=== PATIENT | female | born 1945 ===

== ENCOUNTER → 2016-03-23 | Outpatient (CLI) | payer MEDICARE ==
--- NOTE | 2016-03-24 09:31 | MM ---
Reason for exam: screening (asymptomatic). Last mammogram was performed 1 year and 1 month ago. History: Patient is postmenopausal. Family history of breast cancer in grandmother at age 70. Benign cyst aspiration of the right breast, 1979. Benign cyst aspiration of the right breast, 1969. Took estrogen for 3 years beginning at age 53. Took progesterone for 3 years beginning at age 53. Physical Findings: A clinical breast exam by your physician is recommended on an annual basis and results should be correlated with mammographic findings. MG 3D Screening Mammo W/Cad Bilateral CC and MLO view(s) were taken. Prior study comparison: March 02, 2015, bilateral MG screening mammo w CAD. February 10, 2014, bilateral MG screening mammo w CAD. There are scattered fibroglandular densities. Finding: There are typically benign calcifications in both breasts. There is a chronic nodularity right breast. No significant changes in finding since March 02, 2015 and February 10, 2014. ASSESSMENT: Benign, BI-RAD 2 RECOMMENDATION: Routine screening mammogram of both breasts in 1 year.
== END | disposition home or self-care (01) ==
LOC: RADMAMWWP 10:12
PROVIDERS: ATTEND Internal Medicine
DX: Z12.31 Encounter for screening mammogram for malignant neoplasm of breast (principal)
CPT/HCPCS: 77063; G0202

== ENCOUNTER → 2017-05-30 | Outpatient (CLI) | payer MEDICARE ==
--- NOTE | 2017-05-30 09:56 | CT ---
EXAMINATION TYPE: CT sinus wo con DATE OF EXAM: 05/30/2017 COMPARISON: NONE HISTORY: Chronic sinusits CT DLP: 545.1 mGycm. Automated Exposure Control for Dose Reduction was Utilized. TECHNIQUE: CT scan of the sinuses is performed without contrast, axial images are obtained, coronal r eformatted images are also reviewed. FINDINGS: There is complete opacification of the right maxillary sinus with occlusion of the ostiomea blane complex. There is near complete opacification of the right-sided ethmoid air cells and the centra l and right aspect of the frontal sinus. No air-fluid levels. The left maxillary sinus is patent as is the ostiomeatal complex. No significant mucosal thickening i nvolving the left ethmoid air cells. Sphenoid sinus has a normal appearance. Frontal sinus on the lef t has a normal appearance. Visualized portion of mastoid air cells show no abnormal opacification. The globes are intact bilate rally. IMPRESSION: 1. Severe right-sided ethmoidal, frontal and maxillary sinusitis which appears chronic.
== END | disposition home or self-care (01) ==
LOC: RADCTMAIN 08:57
PROVIDERS: ATTEND Otolaryngology
DX: J32.0 Chronic maxillary sinusitis (principal); J32.2 Chronic ethmoidal sinusitis; J32.1 Chronic frontal sinusitis
CPT/HCPCS: 70486

== ENCOUNTER → 2017-06-08 | Outpatient (CLI) | payer MEDICARE ==
[2017-06-08 08:31] LABS: Basophils # (A) 0.1 k/uL (0-0.2); Basophils % (A) 1 %; Eosinophils # (A) 0.3 k/uL (0-0.7); Eosinophils % (A) 5 %; HCT 40.4 % (34.0-46.0); Lymphocytes # (A) 2.4 k/uL (1.0-4.8); Lymphocytes % (A) 39 %; MCH 31.4 pg (25.0-35.0); MCHC 34.8 g/dL (31.0-37.0); MCV 90.4 fL (80.0-100.0); Mean Platelet Volume 6.6; Monocytes # (A) 0.5 k/uL (0-1.0); Monocytes % (A) 9 %; Neutrophils # (A) 2.7 k/uL (1.3-7.7); Neutrophils % (A) 44 %; Platelet Count 329 k/uL (150-450); RBC 4.47 m/uL (3.80-5.40); RDW 13.1 % (11.5-15.5); WBC 6.1 k/uL (3.8-10.6)
[2017-06-08 08:45] LABS: Calcium 9.8 mg/dL (8.4-10.2); Potassium 3.9 mmol/L (3.5-5.1); Total Bilirubin 0.4 mg/dL (0.2-1.3)
== END | disposition home or self-care (01) ==
LOC: LABWHC1 07:54
PROVIDERS: ATTEND Otolaryngology
DX: Z01.818 Encounter for other preprocedural examination (principal); I10 Essential (primary) hypertension; R00.1 Bradycardia, unspecified
CPT/HCPCS: 36415; 80053; 80061; 84443; 85025; 93005

== ENCOUNTER → 2018-04-24 | Outpatient (CLI) | payer MEDICARE ==
--- NOTE | 2018-04-24 14:17 | US ---
EXAMINATION TYPE: US transvaginal DATE OF EXAM: 04/24/2018 COMPARISON: NONE CLINICAL HISTORY: N83.9 Ovarian Mass. patient states having a CT not at [facility] that showed right ova ana lesion TECHNIQUE: Transvaginal (TV). Date of LMP: PHYSIOTHERAPY ASSISTANT EXAM MEASUREMENTS: Uterus: 5.3 x 3.3 x 3.0 cm Endometrial Stripe: 0.4 cm Right Ovary: 1.7 x 1.2 x 1.1 cm 1. Uterus: Anteverted Appears small and heterogenous. Tiny cystic appearing lesion seen in anteri or mid uterus= 0.2 x 0.4 x 0.3 cm 2. Endometrium: Heterogenous 3. Right Ovary: cystic appearing lesion - 1.7 x 1.8 x 1.6 cm 4. Left Ovary: Obscured by overlying bowel gas 5. Bilateral Adnexa: wnl 6. Posterior cul-de-sac: no free fluid Cervix- nabothian cyst IMPRESSION: 1. Uterus appears heterogeneous which is a nonspecific finding. There is a small myometrial cyst mary uring 4 mm. 2. Endometrium measures only 4 mm but is somewhat heterogeneous correlate clinically. 3. There is a 1. Centimeter right ovarian cyst which has a simple appearance. No prior exams are avai lable for comparison. This somewhat atypical given the patient's demographics correlate clinically.
== END | disposition home or self-care (01) ==
LOC: RADUSWWP 13:26
PROVIDERS: ATTEND Family Medicine
DX: N83.201 Unspecified ovarian cyst, right side (principal); N85.8 Other specified noninflammatory disorders of uterus
CPT/HCPCS: 76830

== ENCOUNTER → 2018-07-25 | Outpatient (CLI) | payer MEDICARE ==
--- NOTE | 2018-07-25 13:15 | US ---
EXAMINATION TYPE: US transvaginal DATE OF EXAM: 07/25/2018 COMPARISON: 04/24/2018 CLINICAL HISTORY: N83.201 Unspecified ovarian cyst, right side. TECHNIQUE: Transvaginal (TV) . Date of LMP: 20+ years ago EXAM MEASUREMENTS: Uterus: 5.5 x 3.2 x 3.6 cm Endometrial Stripe: 1.0 cm Right Ovary: not visualized Left Ovary: not visualized 1. Uterus: heterogenous, possible fibroids 2. Endometrium: thickened 3. Right Ovary: not visualized 4. Left Ovary: not visualized 5. Bilateral Adnexa: wnl 6. Posterior cul-de-sac: no free fluid Bilateral ovaries not seen due to atrophy and bowel. IMPRESSION: 1. Normal pelvic ultrasound
== END | disposition home or self-care (01) ==
LOC: RADUSWWP 10:56
PROVIDERS: ATTEND Family Medicine
DX: N83.201 Unspecified ovarian cyst, right side (principal)
CPT/HCPCS: 76830

== ENCOUNTER → 2018-10-08 | Outpatient (CLI) | payer MEDICARE ==
--- NOTE | 2018-10-08 14:30 | US ---
EXAMINATION TYPE: US transvaginal DATE OF EXAM: 10/08/2018 COMPARISON: 07/25/2018 CLINICAL HISTORY: Endometrial thickening R93.89. No pain. TECHNIQUE: Transvaginal (TV). Date of LMP: MANAGER FIELD EXAM MEASUREMENTS: Uterus: 5.6 x 3.3 x 3.0 cm Endometrial Stripe: 0.9 cm Right Ovary: 2.0 x 0.9 x 0.9 cm 1. Uterus: Anteverted Appears small and heterogenous. Midline cystic appearing lesion seen = 0.2 x 0.3 x 0.2 cm 2. Endometrium: Thickened for a postmenopausal female. Suboptimal visualization of endometrial borde rs. 3. Right Ovary: cystic appearing lesion seen - 1.3 x 1.5 x 1.4 cm. This measures smaller than the ex am of 04/24/2018. This previously measured 1.7 x 1.8 x 1.6 cm. 4. Left Ovary: Obscured by overlying bowel gas 5. Bilateral Adnexa: wnl 6. Posterior cul-de-sac: no free fluid Cervix- nabothian cyst IMPRESSION: 1. Persistent endometrial thickening of the endometrium measuring 9 mm and previously measuring 10 mm . Direct visualization and percutaneous biopsy could be considered, particularly if there is any post possible bleeding. 2. Right ovarian cyst measures 1.5 cm and appears simple. This measures smaller than on the prior exa m of 04/24/2018 and is likely benign. 3. Obscuration of the left ovary by overlying bowel gas.
== END | disposition home or self-care (01) ==
LOC: RADUSWWP 12:07
PROVIDERS: ATTEND Obstetrics & Gynecology
DX: N83.201 Unspecified ovarian cyst, right side (principal)
CPT/HCPCS: 76830

== ENCOUNTER → 2018-10-14 | Outpatient (CLI) | payer MEDICARE ==
[2018-10-14 09:06] LABS: Basophils # (A) 0.1 k/uL (0-0.2); Basophils % (A) 1 %; Eosinophils # (A) 0.3 k/uL (0-0.7); Eosinophils % (A) 5 %; HCT 40.4 % (34.0-46.0); HGB 13.5 gm/dL (11.4-16.0); Lymphocytes # (A) 2.5 k/uL (1.0-4.8); Lymphocytes % (A) 36 %; MCH 30.9 pg (25.0-35.0); MCHC 33.3 g/dL (31.0-37.0); MCV 92.8 fL (80.0-100.0); Mean Platelet Volume 6.4; Monocytes # (A) 0.5 k/uL (0-1.0); Monocytes % (A) 7 %; Neutrophils # (A) 3.4 k/uL (1.3-7.7); Neutrophils % (A) 49 %; Platelet Count 325 k/uL (150-450); RBC 4.35 m/uL (3.80-5.40); RDW 13.5 % (11.5-15.5); WBC 6.9 k/uL (3.8-10.6)
[2018-10-14 16:44] LABS: African American GFR (CKD) 85.4 (60.0-200.0); Albumin/Globulin Ratio 1.9 (1.60-3.17); Anion Gap 7.9 mmol/L (4.00-12.00); BUN/Creat Ratio 26.25 Ratio (12.00-20.00); Calcium 8.9 mg/dL (8.7-10.3); Carbon Dioxide 26.1 mmol/L (21.6-31.8); Chol/HDL Ratio 3.8; Globulin 2.1 g/dL (1.6-3.3); LDL Cholesterol,Calculated 121.2 mg/dL (0.0-131.0); Non-African American GFR(CKD) 73.7 (60.0-200.0); Potassium 4.2 mmol/L (3.5-5.5); Total Bilirubin 0.3 mg/dL (0.3-1.2); Total Protein 6.1 g/dL (6.2-8.2); VLDL Calculation 21.8 mg/dL (5.00-40.00)
[2018-10-14 19:32] LABS: Hemoglobin A1C 5.9 % (4.0-6.0)
== END | disposition home or self-care (01) ==
LOC: LABWHC1 08:38
PROVIDERS: ATTEND Family Medicine
DX: E78.5 Hyperlipidemia, unspecified (principal); I10 Essential (primary) hypertension; R73.01 Impaired fasting glucose
CPT/HCPCS: 36415; 80053; 80061; 83036; 85025

== ENCOUNTER → 2018-10-14 | Outpatient (CLI) | payer MEDICARE | END | disposition home or self-care (01) | LOC: LABPAT 08:36 | PROVIDERS: ATTEND Obstetrics & Gynecology | DX: Z01.818 Encounter for other preprocedural examination (principal); Z01.812 Encounter for preprocedural laboratory examination | CPT/HCPCS: 93005 ==

== ENCOUNTER 2018-11-04 06:27 | Day surgery (SDC) | payer MEDICARE ==
[2018-10-25 15:54] VITALS: BMI 41.3
--- NOTE | 2018-11-03 17:41 | P.HPOB ---
History of Present Illness H&P Date: 11/03/18 Chief Complaint: Endometrial thickening This is a 74 y.o. female, 2, para 2, who presents for dilatation and curettage with hysteroscopy due to thickened endometrium on ultrasound. She initially had a CT scan performed for a lesion in her umbilicus and an incidental finding of a 1.5 cm. right ovarian cyst was made. Initial TV pelvic US showed endometrium thickness of 0.4 cm with a tiny cystic area within the anterior mid uterus. R. ovary still showed cyst. A second pelvic US showed lining thickness or 1 cm and possible fibroid changes. A recent ultrasound showed uterus measuring 5.6 x 3.3 x 3 cm with endometrial thickness of 0.9 cm. Right ovarian cyst is down to 1.5 cm now. There is still appears to be a midline cystic appearing lesion within the uterus measuring 0.2 x 0.3 x 0.2 cm. She is denied any vaginal bleeding or pelvic pain. In light of these findings she has consented to a dilation and curettage with hysteroscopy to further evaluate. Obstetrical history: . History of 2 vaginal deliveries. Gynecologic history: No history of sexual transmitted diseases. Menopause was at age 53-53. Social history: She is . She is a homemaker. Review of Systems Constitutional: Reports fatigue, Reports night sweats, Reports weight gain, Denies chills, Denies fever Eyes: denies blurred vision, denies pain Ears: bilateral: decreased hearing Ears, nose, mouth and throat: Denies headache, Denies sore throat Cardiovascular: Denies chest pain, Denies shortness of breath Respiratory: Denies cough Gastrointestinal: Reports heartburn, Denies abdominal pain Genitourinary: Reports stress incontinence Menstruation: Reports postmenopausal Musculoskeletal: Reports low back pain, Reports myalgias, Reports neck pain Integumentary: Denies pruritus, Denies rash Neurological: Denies numbness, Denies weakness Psychiatric: Reports anxiety, Reports insomnia, Reports memory loss, Denies depression Hematologic/Lymphatic: Reports easy bruising Past Medical History Past Medical History: GERD/Reflux, Hearing Disorder / Deafness, Hyperlipidemia, Hypertension Additional Past Medical History / Comment(s): Hx shingles. Hard of hearing. History of Any Multi-Drug Resistant Organisms: None Reported Past Surgical History: Cholecystectomy, Tonsillectomy, Tubal Ligation Additional Past Surgical History / Comment(s): Sinus surgery. D&C Past Anesthesia/Blood Transfusion Reactions: No Reported Reaction Additional Past Anesthesia/Blood Transfusion Reaction / Comment(s): No hx of blood transfusion. Past Psychological History: No Psychological Hx Reported Smoking Status: Former smoker Past Alcohol Use History: None Reported Additional Past Alcohol Use History / Comment(s): Quit smoking in 2006, smoked for 30 yrs, 1PPD. Past Drug Use History: None Reported - Past Family History Mother Additional Family Medical History / Comment(s): heart problems Father Additional Family Medical History / Comment(s): heart problems Medications and Allergies Home Medications Medication Instructions Recorded Confirmed Type Aspirin 81 mg PO DAILY 07/13/15 10/25/18 History Atenolol [Tenormin] 50 mg PO HS 07/13/15 10/25/18 History Ca/D3/Mag/Zinc/Zacarias/Siva/Mgbor 1 each PO DAILY 07/13/15 10/25/18 History [Caltrate 600+D3+Min Chew Tab] Hydrochlorothiazide [Hydrodiuril] 25 mg PO DAILY 07/13/15 10/25/18 History Vit C/E/Zn/Coppr/Lutein/Zeaxan 1 each PO DAILY 07/13/15 10/25/18 History [Preservision Areds 2 Softgel] Ezetimibe 10 mg PO HS 10/25/18 10/25/18 History Magnesium Oxide [Rdz] 500 mg PO DAILY 10/25/18 10/25/18 History Omeprazole [PriLOSEC] 20 mg PO QAM 10/25/18 10/25/18 History Allergies Allergy/AdvReac Type Severity Reaction Status Date / Time morphine Allergy Itching Verified 10/25/18 15:40 atorvastatin AdvReac Abdominal Verified 11/03/18 17:40 Pain Exam Osteopathic Statement: *. No significant issues noted on an osteopathic structural exam other than those noted in the History and Physical/Consult. HEENT: Within normal limits Heart: Regular rate and rhythm Lungs: Clear to auscultation bilaterally Abdomen: Soft, nontender Pelvic exam: Uterus is anteverted, nontender, with no adnexal masses or tenderness palpated Extremities: Negative Homans Assessment and Plan (1) Endometrial thickening on ultrasound Status: Acute Code(s): R93.89 - ABNORMAL FINDINGS ON DX IMAGING OF OTH BODY STRUCTURES SNOMED Code(s): 602437327 Plan: Proceed with dilation and curettage with hysteroscopy. I have discussed the risks, benefits, and alternative therapies for the above- mentioned procedure and for both sedation/anesthesia as well as necessary blood products administration, if indicated, as they pertain to this patient. The patient has indicated her understanding and acceptance of the risks and procedures discussed.
[~2018-11-04 06:27] MED LIST: DEXAMETHASONE SOD PHOSPHATE 10 MG/ML 1 ML VIAL IV ONE; LACTATED RINGERS 1,000 ML IV SCH; MIDAZOLAM 2 MG/2 ML VIAL IV PRN; ONDANSETRON 4 MG/2 ML VIAL IVP ONE; Pre Op ABX Message 1 EACH MISC MISCELLANE ONE; fentaNYL (PF) 50 MCG/ML 2 ML AMP IV PRN
[2018-11-04] MEDS ORDERED: SUCCINYLCHOLINE CHLORIDE 100 MG/5 ML SYR IV ONE (07:29)
[2018-11-04] MEDS ORDERED: fentaNYL (PF) 50 MCG/ML 2 ML AMP ONE (07:29)
[2018-11-04] MEDS ORDERED: LIDOCAINE 1% INJ 10MG/ML (20 ML MDV) ONE (07:29)
--- NOTE | 2018-11-04 07:55 | P.OP ---
Date of Procedure: 11/04/18 Preoperative Diagnosis: Endometrial thickening on ultrasound Postoperative Diagnosis: Same Procedure(s) Performed: Dilation and curettage with hysteroscopy Anesthesia: REBECCA Surgeon: Adrianna Christopher Estimated Blood Loss (ml): 1 Pathology: other (Endometrial curettings) Condition: stable Disposition: same day Indications for Procedure: This is a 74 y.o. female, 2, para 2, who presents for dilatation and curettage with hysteroscopy due to thickened endometrium on ultrasound. She initially had a CT scan performed for a lesion in her umbilicus and an incidental finding of a 1.5 cm. right ovarian cyst was made. Initial TV pelvic US showed endometrium thickness of 0.4 cm with a tiny cystic area within the anterior mid uterus. R. ovary still showed cyst. A second pelvic US showed lining thickness or 1 cm and possible fibroid changes. A recent ultrasound showed uterus measuring 5.6 x 3.3 x 3 cm with endometrial thickness of 0.9 cm. Right ovarian cyst is down to 1.5 cm now. There is still appears to be a midline cystic appearing lesion within the uterus measuring 0.2 x 0.3 x 0.2 cm. She is denied any vaginal bleeding or pelvic pain. In light of these findings she has consented to a dilation and curettage with hysteroscopy to further evaluate. Operative Findings: Very atrophic endometrium is noted. Uterus is sounded to 6-1/2 cm. Upon hysteroscopy, both tubal ostia are visualized. There is noted to be either a submucosal fibroid or a small polyp anteriorly along the right border of the uterus. It is very small. Otherwise background endometrium appears very atrophic. Minimal endometrial curettings are obtained. Description of Procedure: The patient is taken to the operating room where she is placed in the dorsal lithotomy position. She is prepped and draped in the normal sterile fashion. Bladder is drained with a catheter. Examination is performed under anesthesia. Uterus is found to be small, anteverted, with no adnexal masses palpated. A weighted speculum was placed in the patient's vagina. A right angle retractor is used to visualize the cervix. Anterior lip of the cervix is grasped with a single-tooth tenaculum. Cervical os is noted to be slightly stenotic. The cervix is gently dilated with a Kamara dilator and then the uterus is sounded to 6-1/2 cm. Cervix is gently dilated further until a hysteroscope could be passed. Hysteroscopy is performed using normal saline. The above-noted findings were made and pictures are taken. Next the hysteroscope was removed on. The cervix is gently dilated further and then a medium-size sharp curet was introduced. Sharp curettage was performed until a gritty texture was noted. Irregular contour was noted along the anterior border. Very scant endometrial tissue is obtained. Single-tooth tenaculum was removed from the cervix. No bleeding is noted. All instruments are removed from the vagina. All sponge and needle counts are correct. Patient is then taken to the recovery room in stable condition.
[2018-11-04 08:04] VITALS: TEMP 97.5
[2018-11-04 08:46] VITALS: RESP 18
[2018-11-04 09:43] VITALS: BP 123/67; PULSE 60
== END 2018-11-04 09:45 | disposition home or self-care (01) ==
LOC: OR 06:27
PROVIDERS: ATTEND Obstetrics & Gynecology
DX: N84.0 Polyp of corpus uteri (principal); N83.201 Unspecified ovarian cyst, right side; N83.202 Unspecified ovarian cyst, left side; Z90.49 Acquired absence of other specified parts of digestive tract; Z98.51 Tubal ligation status; Z87.891 Personal history of nicotine dependence; Z79.82 Long term (current) use of aspirin; Z79.899 Other long term (current) drug therapy; Z88.5 Allergy status to narcotic agent; Z88.8 Allergy status to other drugs, medicaments and biological substances; I10 Essential (primary) hypertension; E78.5 Hyperlipidemia, unspecified
CPT/HCPCS: 88305; 58558; J1100; J2405; J2001; J3010; J0330

== ENCOUNTER → 2019-05-02 | Outpatient (CLI) | payer MEDICARE ==
[2019-05-02 12:40] LABS: HCT 41.4 % (34.0-46.0); HGB 13.8 gm/dL (11.4-16.0); MCH 31.8 pg (25.0-35.0); MCHC 33.3 g/dL (31.0-37.0); MCV 95.4 fL (80.0-100.0); Platelet Count 358 k/uL (150-450); RBC 4.34 m/uL (3.80-5.40); WBC 7.8 k/uL (3.8-10.6)
[2019-05-02 12:48] LABS: Albumin 4.3 g/dL (3.5-5.0); Calcium 9.6 mg/dL (8.4-10.2); Potassium 4.5 mmol/L (3.5-5.1); Total Bilirubin 0.4 mg/dL (0.2-1.3); Total Protein 7.4 g/dL (6.3-8.2)
[2019-05-02 13:07] LABS: Amorphous Sediment,Urine Few /hpf; Appearance,Urine Cloudy (Clear); Bacteria,Urine Rare /hpf; Bilirubin,Urine Negative (Negative); Blood,Urine Negative (Negative); Color,Urine Yellow; Glucose,Urine (UA) Negative (Negative); Hyaline Casts,Urine 2 /lpf (0-2); Ketones,Urine 1+ (Negative); Leukocyte Esterase,Urine Moderate (Negative); Mucus,Urine Many /hpf; Nitrite,Urine Negative (Negative); Protein,Urine 1+ (Negative); RBC,Urine 4 /hpf (0-5); Specific Gravity,Urine 1.034 (1.001-1.035); Squamous Epithelial Cell,Urine 10 /hpf (0-4); WBC,Urine 3 /hpf (0-5)
== END | disposition home or self-care (01) ==
LOC: LABPAT 10:23
PROVIDERS: ATTEND Orthopaedic Surgery Sports Medicine
DX: Z01.818 Encounter for other preprocedural examination (principal); Z01.812 Encounter for preprocedural laboratory examination; M17.11 Unilateral primary osteoarthritis, right knee
CPT/HCPCS: 36415; 80053; 81001; 85027; 85610; 85730; 87070

== ENCOUNTER → 2022-07-18 | Outpatient (CLI) | payer MEDICARE ==
--- NOTE | 2022-07-18 12:48 | US ---
EXAMINATION TYPE: US venous doppler duplex LE RT DATE OF EXAM: 07/18/2022 12:38 PM COMPARISON: NONE CLINICAL INDICATION: Female, 77 years old with history of R60.0 LOCALIZED EDEMA; SIDE PERFORMED: Right TECHNIQUE: The lower extremity deep venous system is examined utilizing real time linear array sonog hernesto with graded compression, doppler sonography and color-flow sonography. VESSELS IMAGED: Common Femoral Vein Deep Femoral Vein Greater Saphenous Vein * Femoral Vein Popliteal Vein Small Saphenous Vein * Proximal Calf Veins (* superficial vessels) Right Leg: Negative for DVT IMPRESSION: No evidence for DVT within the right lower extremity imaged from the groin to the upper calf.
== END | disposition home or self-care (01) ==
LOC: RADUSWWP 11:59
PROVIDERS: ATTEND Family Medicine
DX: R60.0 Localized edema (principal)

== ENCOUNTER → 2022-08-09 | Outpatient (CLI) | payer MEDICARE ==
--- NOTE | 2022-08-09 18:33 | CA ---
Transthoracic Echo Report Name: Rohini Kelly Age: 77 Gender: F : 1945 Exam Date: 08/09/2022 12:59 Exam Location: [facility] Ht (in): 62 Wt (lb): 240 Ordering Physician: Eitan Caputo MD Attending/Referring Phys: Rosalia Sierra [facility] Guide Travel Sharon Ga RDCS Procedure CPT: Indications: I10 HYPERTENSION Cardiac Hx: Technical Quality: Good Contrast 1: Total Dose (mL): Contrast 2: Total Dose (mL): MEASUREMENTS (Male / Female) Normal Values 2D ECHO LV Diastolic Diameter PLAX 5.4 cm 4.2 - 5.9 / 3.9 - 5.3 cm LV Systolic Diameter PLAX 3.1 cm IVS Diastolic Thickness 1.3 cm 0.6 - 1.0 / 0.6 - 0.9 cm LVPW Diastolic Thickness 1.1 cm 0.6 - 1.0 / 0.6 - 0.9 cm LV Relative Wall Thickness 0.4 RV Internal Dim ED PLAX 3.0 cm LA Systolic Diameter LX 3.9 cm 3.0 - 4.0 / 2.7 - 3.8 cm LV Diastolic Volume MOD 4C 115.0 cm??? LV Systolic Volume MOD 4C 50.2 cm??? LV Ejection Fraction MOD 4C 56.4 % LV Diastolic Length 4C 7.8 cm LV Systolic Length 4C 6.0 cm LV Diastolic Volume MOD 2C 60.0 cm??? LV Systolic Volume MOD 2C 20.0 cm??? LV Ejection Fraction MOD 2C 66.6 % LV Diastolic Length 2C 7.5 cm LV Systolic Length 2C 6.3 cm LA Volume 40.6 cm??? 18 - 58 / 22 - 52 cm??? M-MODE Aortic Root Diameter MM 2.9 cm MV E Point Septal Separation 0.5 cm AV Cusp Separation MM 1.9 cm DOPPLER AV Peak Velocity 158.2 cm/s AV Peak Gradient 10.0 mmHg MV Area PHT 3.2 cm??? Mitral E Point Velocity 90.2 cm/s Mitral A Point Velocity 113.9 cm/s Mitral E to A Ratio 0.8 MV Deceleration Time 237.6 ms MV E' Velocity 7.2 cm/s Mitral E to MV E' Ratio 12.5 TR Peak Velocity 274.8 cm/s TR Peak Gradient 30.2 mmHg Right Ventricular Systolic Press 35.2 mmHg FINDINGS Left Ventricle Left ventricular ejection fraction is estimated at 55-60 %. Normal left ventricular wall motion. Left ventricular cavity size normal. Mildly increased left ventricular wall thickness. Right Ventricle Normal right ventricular size and function. Mild pulmonary hypertension. Right Atrium Normal right atrial size. Left Atrium Normal left atrial size. Mitral Valve Structurally normal mitral valve. Mild mitral regurgitation. Aortic Valve Trileaflet aortic valve. No aortic valve stenosis or regurgitation.aortic valve sclerosis. Tricuspid Valve Structurally normal tricuspid valve. Mild tricuspid regurgitation. Pulmonic Valve Structurally normal pulmonic valve. No pulmonic regurgitation. Pericardium Normal pericardium. No pericardial effusion. Aorta Normal size aortic root and proximal ascending aorta. CONCLUSIONS 1. Normal left ventricle size and systolic function 2. Mild mitral and tricuspid regurgitation Previewed by: Dr. Anisha Robbins MD (Electronically Signed) Final Date: 09 August 2022 18:33
== END | disposition home or self-care (01) ==
LOC: RADECHMAIN 12:50
PROVIDERS: ATTEND Family Medicine
DX: I08.1 Rheumatic disorders of both mitral and tricuspid valves (principal); I10 Essential (primary) hypertension
CPT/HCPCS: 93306

== ENCOUNTER 2023-07-31 13:04 | Emergency (ER) | payer MEDICARE ==
[2023-07-31 13:09] VITALS: TEMP 97.9
--- NOTE | 2023-07-31 13:58 | ED ---
Abdominal Pain HPI - General Source: patient, RN notes reviewed Mode of arrival: ambulatory Limitations: no limitations <Demi Pierre - Last Filed: 08/07/23 11:14> <Isaias Faulkner - Last Filed: 08/14/23 07:46> - General Chief Complaint: Abdominal Pain Stated Complaint: Abd pain, nausea Time Seen by Provider: 07/31/23 13:20 - History of Present Illness Initial Comments: Shama kumari is a 78-year-old female presents emergency department chief complaint of right lower quadrant abdominal pain that started at 5 AM this morning. States that the pain has began to migrate into her back. She endorses nausea and decrease in appetite, no vomiting. Denies hematuria, dysuria, increase in frequency, urgency, denies history of nephrolithiasis. States that she has had 3 bowel movements today with no signs of blood or dark or tarry stools. Past surgical history of gallbladder removal roughly 8 years ago with no complications. (Demi Pierre) - Related Data Home Medications Medication Instructions Recorded Confirmed Vit C/E/Zn/Coppr/Lutein/Zeaxan 1 cap PO BID 07/13/15 07/31/23 [Preservision Areds 2 Softgel] atenoloL [Tenormin] 50 mg PO HS 07/13/15 07/31/23 hydroCHLOROthiazide [Hydrodiuril] 25 mg PO DAILY 07/13/15 07/31/23 Ezetimibe 10 mg PO HS 10/25/18 07/31/23 Omeprazole [PriLOSEC] 20 mg PO DAILY 10/25/18 07/31/23 Calcium Carbonate/Vitamin D3 1 tab PO DAILY 07/31/23 07/31/23 [Calcium 600 mg-D3 10 Mcg (400 Iu)] Fenofibrate [Lofibra] 54 mg PO HS 07/31/23 07/31/23 Ibuprofen [Motrin] 800 mg PO Q8H PRN 07/31/23 07/31/23 Niacin 500 mg PO DAILY 07/31/23 07/31/23 Solifenacin Succinate 10 mg PO DAILY 07/31/23 07/31/23 Allergies Allergy/AdvReac Type Severity Reaction Status Date / Time morphine Allergy Itching Verified 07/31/23 17:41 atorvastatin AdvReac Abdominal Verified 07/31/23 17:41 Pain, Muscle pain Review of Systems ROS Other: All systems not noted in ROS Statement are negative. <Demi Pierre - Last Filed: 08/07/23 11:14> ROS Other: All systems not noted in ROS Statement are negative. <Isaias Faulkner - Last Filed: 08/14/23 07:46> ROS Statement: Those systems with pertinent positive or pertinent negative responses have been documented in the HPI. Past Medical History Past Medical History: GERD/Reflux, Hypertension, Skin Disorder Additional Past Medical History / Comment(s): healing shingles back,rt breast,and around mouth-all areas are dry History of Any Multi-Drug Resistant Organisms: None Reported Past Surgical History: Cholecystectomy, Tonsillectomy, Tubal Ligation Past Anesthesia/Blood Transfusion Reactions: No Reported Reaction Additional Past Anesthesia/Blood Transfusion Reaction / Comment(s): no hx of blood transfusion Past Alcohol Use History: None Reported Past Drug Use History: None Reported - Past Family History Mother Additional Family Medical History / Comment(s): heart problems Father Additional Family Medical History / Comment(s): heart problems <Demi Pierre - Last Filed: 08/07/23 11:14> General Exam Limitations: no limitations <Demi Pierre - Last Filed: 08/07/23 11:14> Limitations: no limitations General appearance: alert, in no apparent distress Head exam: Present: atraumatic, normocephalic Eye exam: Present: normal appearance. Absent: scleral icterus, conjunctival injection ENT exam: Present: normal oropharynx Neck exam: Present: normal inspection Respiratory exam: Present: normal lung sounds bilaterally. Absent: respiratory distress, wheezes, rales, rhonchi, stridor, accessory muscle use Cardiovascular Exam: Present: regular rate, normal rhythm, normal heart sounds. Absent: systolic murmur, diastolic murmur, rubs, gallop GI/Abdominal exam: Present: soft, tenderness. Absent: distended, guarding, rebound, rigid, mass, pulsatile mass, hernia Extremities exam: Present: normal inspection, normal capillary refill. Absent: pedal edema, calf tenderness Back exam: Present: normal inspection. Absent: CVA tenderness (R), CVA tenderness (L) Neurological exam: Present: alert Skin exam: Present: warm, dry, intact, normal color. Absent: rash <Isaias Faulkner - Last Filed: 08/14/23 07:46> - General Exam Comments Initial Comments: Visual Physical Exam Vital signs reviewed General: Well-appearing, nontoxic, no acute distress. Head: Normocephalic, atraumatic Eyes: PERRLA, EOMI ENT: Airway patent Chest: Nonlabored breathing Skin: No visual rash, normal skin tone Neuro: Alert and oriented 3 Musculoskeletal: No gross abnormalities (Demi Pierre) Course Vital Signs 07/31/23 07/31/23 07/31/23 13:06 15:36 17:42 Temperature 97.9 F Pulse Rate 58 L 65 60 Respiratory 16 18 16 Rate Blood Pressure 160/74 132/79 128/47 O2 Sat by Pulse 95 98 96 Oximetry 07/31/23 07/31/23 22:43 23:17 Temperature Pulse Rate 74 62 Respiratory 18 18 Rate Blood Pressure 124/54 130/66 O2 Sat by Pulse 98 95 Oximetry Medical Decision Making - Lab Data Result diagrams: 07/31/23 15:29 07/31/23 16:26 <Demi Pierre - Last Filed: 08/07/23 11:14> - Lab Data Result diagrams: 07/31/23 15:29 07/31/23 16:26 <Isaias Faulkner - Last Filed: 08/14/23 07:46> - Medical Decision Making I completed the quick note portion of this chart signed Demi Pierre PA-C (Demi Pierre) Patient is 78-year-old woman with right lower quadrant pain since she has marked tenderness on the exam. The patient went for CT scan of the abdomen that did show probable appendicitis. The patient stated that she did not want to have surgery here and requested transfer to initially [facility] which did not have bed availability and then subsequently to [facility] which accepted patient for transfer. Was pt. sent in by a medical professional or institution (BRIAN Martínez, PODIATRIC MEDICINE DOCTOR, urgent care, hospital, or custodial...) When possible be specific @ -[No] Did you speak to anyone other than the patient for history (EMS, parent, family, police, friend...)? What history was obtained from this source @ -[No] Did you review nursing and triage notes (agree or disagree)? Why? @ -[I reviewed and agree with nursing and triage notes] Were old charts reviewed (outside hosp., previous admission, EMS record, old EKG, old radiological studies, urgent care reports/EKG's, custodial records)? Report findings @ -[No old charts were reviewed] Differential Diagnosis (chest pain, altered mental status, abdominal pain women, abdominal pain men, vaginal bleeding, weakness, fever, dyspnea, syncope, headache, dizziness, GI bleed, back pain, seizure, CVA, palpatations, mental health, musculoskeletal)? @ -[Differential Abdominal Pain Men: Appendicitis, cholecystitis, diverticulosis, ischemic bowel, pancreatitis, hepatitis, UTI, gastroenteritis, AAA, incarcerated hernia, bowel obstruction, c onstipation, inflammatory bowel, hepatitis, peptic ulcer disease, splenic infarction, perforated viscus, testicular torsion, this is not meant to be an all-inclusive list EKG interpreted by me (3pts min.). @ -[As above] X-rays interpreted by me (1pt min.). @ -[None done] CT interpreted by me (1pt min.). @ -[The patient had CT scan of the abdomen and pelvis that I interpreted as showing acute appendicitis U/S interpreted by me (1pt. min.). @ -[None done] What testing was considered but not performed or refused? (CT, X-rays, U/S, labs)? Why? @ -[None] What meds were considered but not given or refused? Why? @ -[None] Did you discuss the management of the patient with other professionals (professionals i.e. , PA, PODIATRIC MEDICINE DOCTOR, lab, RT, psych nurse, clinical social work therapist, meter supervisor, teacher, ski patrol officer, child welfare caseworker)? Give summary @ -[No] Was smoking cessation discussed for >3mins.? @ -[No] Was critical care preformed (if so, how long)? @ -[No] Were there social determinants of health that impacted care today? How? (Homelessness, low income, unemployed, alcoholism, drug addiction, transporta tion, low edu. Level, literacy, decrease access to med. care, longterm, rehab)? @ -[No] Was there de-escalation of care discussed even if they declined (Discuss DNR or withdrawal of care, Hospice)? DNR status @ -[No] What co-morbidities impacted this encounter? (DM, HTN, Smoking, COPD, CAD, Cancer, CVA, ARF, Chemo, Hep., AIDS, mental health diagnosis, sleep apnea, morbid obesity)? @ -[None] Was patient admitted / discharged? Hospital course, mention meds given and route, prescriptions, significant lab abnormalities, going to OR and other pertinent info. @ -See above Undiagnosed new problem with uncertain prognosis? @ -[No] Drug Therapy requiring intensive monitoring for toxicity (Heparin, Nitro, Insulin, Cardizem)? @ -[No] Were any procedures done? @ -[No] Diagnosis/symptom? @ -[Abdominal pain Acute appendicitis Acute, or Chronic, or Acute on Chronic? @ -[Acute Uncomplicated (without systemic symptoms) or Complicated (systemic symptoms)? @ -[Uncomplicated Side effects of treatment? @ -[No] Exacerbation, Progression, or Severe Exacerbation? @ -[No] Poses a threat to life or bodily function? How? (Chest pain, [place], [place], pneumonia, PE, COPD, DKA, ARF, appy, cholecystitis, CVA, Diverticulitis, Homicidal, Suicidal, threat to staff... and all critical care pts) @ -[No] (Isaias Faulkner) - Lab Data Lab Results 07/31/23 07/31/23 07/31/23 Range/Units 14:48 15:29 15:29 WBC 13.4 H (3.8-10.6) k/uL RBC 4.41 (3.80-5.40) m/uL Hgb 13.8 (11.4-16.0) gm/dL Hct 42.1 (34.0-46.0) % MCV 95.6 (80.0-100.0) fL MCH 31.3 (25.0-35.0) pg MCHC 32.8 (31.0-37.0) g/dL RDW 13.4 (11.5-15.5) % Plt Count 334 (150-450) k/uL MPV 7.5 Neutrophils % 79 % Lymphocytes % 13 % Monocytes % 4 % Eosinophils % 3 % Basophils % 0 % Neutrophils # 10.6 H (1.3-7.7) k/uL Lymphocytes # 1.8 (1.0-4.8) k/uL Monocytes # 0.6 (0-1.0) k/uL Eosinophils # 0.3 (0-0.7) k/uL Basophils # 0.1 (0-0.2) k/uL Sodium (137-145) mmol/L Potassium (3.5-5.1) mmol/L Chloride (98-107) mmol/L Carbon Dioxide (22-30) mmol/L Anion Gap mmol/L BUN (7-17) mg/dL Creatinine (0.52-1.04) mg/dL Est GFR (CKD-EPI)AfAm (>60 ml/min/1.73 sqM) Est GFR (CKD-EPI)NonAf (>60 ml/min/1.73 sqM) Glucose (74-99) mg/dL Plasma Lactic Acid Kee 1.5 (0.7-2.0) mmol/L Calcium (8.4-10.2) mg/dL Total Bilirubin (0.2-1.3) mg/dL AST (14-36) U/L ALT (4-34) U/L Alkaline Phosphatase (38-126) U/L C-Reactive Protein (<1.0) mg/dL Total Protein (6.3-8.2) g/dL Albumin (3.5-5.0) g/dL Amylase (30-110) U/L Lipase (23-300) U/L Urine Color Colorless Urine Appearance Clear (Clear) Urine pH 7.5 (5.0-8.0) Ur Specific [place] 1.019 (1.001-1.035) Urine Protein Negative (Negative) Urine Glucose (UA) Negative (Negative) Urine Ketones Negative (Negative) Urine Blood Negative (Negative) Urine Nitrite Negative (Negative) Urine Bilirubin Negative (Negative) Urine Urobilinogen <2.0 (<2.0) mg/dL Ur Leukocyte Esterase Small H (Negative) Urine RBC 1 (0-5) /hpf Urine WBC 8 H (0-5) /hpf Ur Squamous Epith Cells 2 (0-4) /hpf Urine Bacteria Rare H (None) /hpf Urine Mucus Rare H (None) /hpf 07/31/23 Range/Units 16:26 WBC (3.8-10.6) k/uL RBC (3.80-5.40) m/uL Hgb (11.4-16.0) gm/dL Hct (34.0-46.0) % MCV (80.0-100.0) fL MCH (25.0-35.0) pg MCHC (31.0-37.0) g/dL RDW (11.5-15.5) % Plt Count (150-450) k/uL MPV Neutrophils % % Lymphocytes % % Monocytes % % Eosinophils % % Basophils % % Neutrophils # (1.3-7.7) k/uL Lymphocytes # (1.0-4.8) k/uL Monocytes # (0-1.0) k/uL Eosinophils # (0-0.7) k/uL Basophils # (0-0.2) k/uL Sodium 135 L (137-145) mmol/L Potassium 4.4 (3.5-5.1) mmol/L Chloride 105 (98-107) mmol/L Carbon Dioxide 23 (22-30) mmol/L Anion Gap 7 mmol/L BUN 23 H (7-17) mg/dL Creatinine 0.62 (0.52-1.04) mg/dL Est GFR (CKD-EPI)AfAm >90 (>60 ml/min/1.73 sqM) Est GFR (CKD-EPI)NonAf 87 (>60 ml/min/1.73 sqM) Glucose 112 H (74-99) mg/dL Plasma Lactic Acid Kee (0.7-2.0) mmol/L Calcium 8.9 (8.4-10.2) mg/dL Total Bilirubin 0.7 (0.2-1.3) mg/dL AST 27 (14-36) U/L ALT 17 (4-34) U/L Alkaline Phosphatase 104 (38-126) U/L C-Reactive Protein 0.6 (<1.0) mg/dL Total Protein 7.0 (6.3-8.2) g/dL Albumin 4.1 (3.5-5.0) g/dL Amylase 43 (30-110) U/L Lipase 90 (23-300) U/L Urine Color Urine Appearance (Clear) Urine pH (5.0-8.0) Ur Specific [place] (1.001-1.035) Urine Protein (Negative) Urine Glucose (UA) (Negative) Urine Ketones (Negative) Urine Blood (Negative) Urine Nitrite (Negative) Urine Bilirubin (Negative) Urine Urobilinogen (<2.0) mg/dL Ur Leukocyte Esterase (Negative) Urine RBC (0-5) /hpf Urine WBC (0-5) /hpf Ur Squamous Epith Cells (0-4) /hpf Urine Bacteria (None) /hpf Urine Mucus (None) /hpf Disposition Is patient prescribed a controlled substance at d/c from ED?: No - Out of Hospital Transfer - Req. Specs Out of Hospital Transfer - Requested Specifics: Other Non-Acute <Demi Pierre - Last Filed: 08/07/23 11:14> Is patient prescribed a controlled substance at d/c from ED?: No <Isaias Faulkner - Last Filed: 08/14/23 07:46> Clinical Impression: Acute appendicitis Disposition: OTHER INSTITUTION NOT DEFINED Condition: Good Referrals: Eitan Caputo MD [Primary Care Provider] - 1-2 days
[2023-07-31 15:01] LABS: Appearance,Urine Clear (Clear); Bacteria,Urine Rare /hpf; Bilirubin,Urine Negative (Negative); Blood,Urine Negative (Negative); Color,Urine Colorless; Glucose,Urine (UA) Negative (Negative); Ketones,Urine Negative (Negative); Leukocyte Esterase,Urine Small (Negative); Mucus,Urine Rare /hpf; Nitrite,Urine Negative (Negative); PH, Urine 7.5 (5.0-8.0); Protein,Urine Negative (Negative); RBC,Urine 1 /hpf (0-5); Specific Gravity,Urine 1.019 (1.001-1.035); Squamous Epithelial Cell,Urine 2 /hpf (0-4); Urobilinogen,Urine <2.0 mg/dL (<2.0); WBC,Urine 8 /hpf (0-5)
[2023-07-31 15:38] LABS: Basophils # (A) 0.1 k/uL (0-0.2); Basophils % (A) 0 %; Eosinophils # (A) 0.3 k/uL (0-0.7); Eosinophils % (A) 3 %; HCT 42.1 % (34.0-46.0); HGB 13.8 gm/dL (11.4-16.0); Lymphocytes # (A) 1.8 k/uL (1.0-4.8); Lymphocytes % (A) 13 %; MCH 31.3 pg (25.0-35.0); MCHC 32.8 g/dL (31.0-37.0); MCV 95.6 fL (80.0-100.0); Mean Platelet Volume 7.5; Monocytes # (A) 0.6 k/uL (0-1.0); Monocytes % (A) 4 %; Neutrophils # (A) 10.6 k/uL (1.3-7.7); Neutrophils % (A) 79 %; Platelet Count 334 k/uL (150-450); RBC 4.41 m/uL (3.80-5.40); RDW 13.4 % (11.5-15.5); WBC 13.4 k/uL (3.8-10.6)
[2023-07-31 16:43] LABS: ALT 17 U/L (4-34); AST 27 U/L (14-36); African American GFR (CKD) >90 (>60 ml/min/1.73 sqM); Albumin 4.1 g/dL (3.5-5.0); Alkaline Phosphatase 104 U/L (38-126); Amylase 43 U/L (30-110); Anion Gap 7 mmol/L; Blood Urea Nitrogen 23 mg/dL (7-17); C Reactive Protein 0.6 mg/dL (<1.0); Calcium 8.9 mg/dL (8.4-10.2); Carbon Dioxide 23 mmol/L (22-30); Chloride 105 mmol/L (98-107); Glucose 112 mg/dL (74-99); Lipase 90 U/L (23-300); Non-African American GFR(CKD) 87 (>60 ml/min/1.73 sqM); Sodium 135 mmol/L (137-145); Total Bilirubin 0.7 mg/dL (0.2-1.3)
[2023-07-31 16:46] LABS: Potassium 4.4 mmol/L (3.5-5.1)
--- NOTE | 2023-07-31 17:51 | CT ---
EXAMINATION TYPE: CT abdomen pelvis wo con DATE OF EXAM: 07/31/2023 COMPARISON: None HISTORY: 78-year-old female RLQ pain CT DLP: 1048.4 mGycm. Automated exposure control for dose reduction was used. TECHNIQUE: Contiguous axial scanning of the abdomen and pelvis without IV contrast. Coronal and sagit blane reconstructions performed. FINDINGS: Heart upper limits of normal in size without pericardial effusion. Dependent atelectasis posterior ri ght base pleural effusion. Tiny hiatal hernia. Noncontrast appearance of the liver, adrenal glands, spleen, and pancreas show no gross abnormal body . Cholecystectomy clips. Kidneys show no nephrolithiasis or hydronephrosis. No dilated small bowel, free fluid, or free air. The appendix is mildly thickened and shows mild periappendiceal fat stranding, coronal image 48, and axial image 66. Mild stool burden. No other pericolic inflammatory change. No mesenteric or retroperitoneal adenopathy. Bladder urine distended. Uterus anteverted. Both ovaries are visualized. No abnormal fluid collection in the pelvis or pelvic lymphadenopathy. Moderate to advanced spondylotic change mid to lower lumbar spine. IMPRESSION: 1. Exam positive for acute appendicitis with mild inflammation. No abscess or free air. 2. Tiny hiatal hernia.
[2023-07-31] MEDS: AMPICILLIN-SULBACTAM 3 GM in SODIUM CHLORIDE 0.9% 100 ML IVPB STA (19:04)
[2023-07-31 22:44] VITALS: RESP 18
[2023-07-31 23:18] VITALS: BP 130/66; PULSE 62
== END 2023-07-31 23:22 | disposition other institution (70) ==
LOC: EC 13:04
DX: K35.80 Unspecified acute appendicitis (principal); Z88.5 Allergy status to narcotic agent; Z88.8 Allergy status to other drugs, medicaments and biological substances
CPT/HCPCS: 36415; 80053; 82150; 83605; 83690; 85025; 86140; 81001; 87040; 74176; 99285; 96365; J0295